=== PATIENT | male | born 1960 | race Caucasian/White ===

== ENCOUNTER 2018-05-02 20:32 | Observation (INO) | payer MEDICARE, OTHER ==
[2018-05-02] MEDS ORDERED: Ondansetron ODT 4 MG TAB ONE (20:38)
[2018-05-02] MEDS ORDERED: Ondansetron HCl/PF 4 MG/2 ML Vial ONE (20:39)
--- NOTE | 2018-05-02 23:38 | PDOC.FPRHP ---
- History of Present Illness Chief Complaint: Seizure History of Present Illness: This is a 58 yo male with a PMH of CAD s/p CABG, migraines, DMII, dercums disease, HTN who presents to the ED with a cc of seizure activity. He reports that he had a seizure. He states that he does not remember what happened and does not remember what he is being treated for. Pt. Was fixated on urinating and became uncooperative. I was able to talk with is regarding his PMH however she is in [place] and was not present for his episode. 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 Pt. reports some tongue pain. - History PMHx:CAD, migrains, DMII, dercum's disease, HTN PSHx: Lung tumors removed in 2015, CABG FHx: Noncontributory Social: Denies T/A/D - Review of Systems General: denies: fever/chills, weight/appetite/sleep changes Eyes: denies: eye pain, vision changes ENT: denies: nasal congestion Respiratory: denies: cough, congestion, shortness of breath Cardiovascular: denies: chest pain, palpitation Gastrointestinal: denies: nausea, vomiting, diarrhea Genitourinary: reports: other (Urgency, reports needing to use the restroom multiple times during his time in the ED) Skin: denies: rashes, lesions Musculoskeletal: denies: pain, tenderness Neurological: reports: syncope, seizure. denies: numbness Psychological: denies: anxiety, depression - Vital signs BP: 140/92 HR: 96 RR: 18 Tmax: 98.4 Pox: 98% on RA Wt: 170.10 - Physical Exam Constitutional: awake, alert and oriented, other (mildly agitated) HEENT: normocephalic and atraumatic, EOMI, other (Dried blood over lips and on tongue, MMM) Neck: FROM, trachea midline Chest: no-tender to palpation Heart: RRR (limited due to body habitus), normal S1/S2, other Lungs: no respiratory distress, other (Good rise of chest, unable to assess due to body habitus) Abdomen: soft, bowel sounds present, no masses/distention Musculoskeletal: normal structure, normal tone Neurological: other (Uncooperative for neuroexam however, no apparent defects) Heme/Lymphatic: no unusual bruising or bleeding, no purpura FMR H&P: Results - Labs Result Diagrams: 05/03/18 04:49 05/03/18 04:49 FMR H&P: A/P - Problem List (1) Seizures Current Visit: Yes Status: Acute Code(s): R56.9 - UNSPECIFIED CONVULSIONS (2) HTN (hypertension) Current Visit: Yes Status: Acute Code(s): I10 - ESSENTIAL (PRIMARY) HYPERTENSION (3) Dercum disease Current Visit: Yes Status: Acute Code(s): E88.2 - LIPOMATOSIS, NOT ELSEWHERE CLASSIFIED (4) CAD (coronary artery disease) Current Visit: Yes Status: Acute Code(s): I25.10 - ATHSCL HEART DISEASE OF [place] CORONARY ARTERY W/O ANG PCTRS (5) Migraine Current Visit: Yes Status: Acute Code(s): G43.909 - MIGRAINE, UNSP, NOT INTRACTABLE, WITHOUT STATUS MIGRAINOSUS - Plan This is a 58 yo male with a PMH of CAD s/p CABG, migraines, DMII, dercums disease, HTN Seizure activity -Admit to obs. We will have PRN ativan for seizure activity. We will also have seizure precautions and Q4 neuro checks. Due to his new onset grand mal seizure activity, we will consult neurology in the morning. CAD s/p CABG -Continue home meds DMII -Home meds when we are reconciled, ACHS accuchecks, SSI moderate HTN -Continue home meds Dercums disease -Aware Migraines -Continue home meds once available. Code: Full Prophylaxis: SCD Family: none at bedised Disposition: home in 1-2 day FMR H&P: Upper Level - Pertinent history 58 yo WM PMH CAD s/p CABG x6 vessel, HTN, HLD, DM2, and remote history of seizures. Presents as transfer from [place] [facility] after seizure event occurred prior to arrival. Became stiff without tonic clonic activity per ER records. Patient states he does not remember event. Per buyer intern report, patient's states he has a history of absence seizures. At time of my exam, the patient reports history of SUT[place] but denies hx of seizures. Per nursing, patient keeps changing his story. He was complaining about needing a glass of ice water and something to eat multiple times during my examination. - Pertinent findings Vitals: BP 140/94, pulse 94, resp 16, 98% on 2L NS, WT 170 kg GEN: obese, NAD ENT: MMM, bruising and laceration to tongue. CV: RRR Pulm: CTA-B, normal effort Neuro: CN2-12 intact, no focal deficits, normal sensation, - Plan Date/Time: 05/02/18 2249 I, Jair Garrido MD, have evaluated this patient and agree with findings/plan as outlined by buyer intern resident. Pertinent changes/additions are listed here. 1. Seizure NOS- Obs, stroke, ativan PRN, will have neuro evaluate him tomorrow. CT negative. Attempting to run prolactin off blood in [place]. Seizure precautions. Will attempt med rec. 2. DM2- home meds, SSI, ACHS checks 3. HTN- med rec, home meds, PRNs available. 4. CAD s/p CABG x6 vessel- med rec, trend trops x3, 5. Obesity: limit sedatives 6. Dercman's disease- outpatient management 7. Diet: HH, CC, 8. PPx: seizure, fall, SCD 9. CODE: Full Dispo- Obs, stroke, <[address] Ferguson. Attending Addendum - Attending Addendum Date/Time: 05/03/18 0704 I personally evaluated the patient and discussed the management with Dr. Zamorano /Hema. I agree with the History, Examination, Assessment and Plan documented above with any addition or exceptions noted below.
[2018-05-02] MEDS ORDERED: Adacel (T-DAP) 0.5 ML VIAL ONE (23:43)
[2018-05-03] MEDS ORDERED: Acetaminophen 325 MG TAB PO PRN (01:55)
[2018-05-03] MEDS ORDERED: Ondansetron ODT 4 MG TAB PO PRN (01:55)
[2018-05-03] MEDS ORDERED: Lorazepam 2 MG/ML VIAL SLOW IVP PRN (01:55)
[2018-05-03] MEDS ORDERED: Ondansetron HCl/PF 4 MG/2 ML Vial IVP PRN (01:55)
[2018-05-03] MEDS ORDERED: hydrALAZINE 20 MG/ML VIAL SLOW IVP PRN (01:55)
[2018-05-03 02:41] VITALS: BMI 48.2
[2018-05-03 05:24] LABS: #Lymphocytes 2.1 thou/uL (1.20-3.40); #Monocytes 1.3 thou/uL (0.11-0.59); #Neutrophils 10.5 thou/uL (1.40-6.50); %Basophils 0.1 % (0.0-1.0); %Eosinophils 0.3 % (0.0-10.0); %Lymphocytes 14.9 % (21.0-51.0); %Monocytes 9.4 % (0.0-10.0); %Neutrophils 75.3 % (42.0-75.0); Hemoglobin 15.4 g/dL (14.0-18.0); Mean Corpuscular HGB CONC 32.7 g/dL (32.0-36.0); Mean Corpuscular Hemoglobin 29.5 pg (27.0-31.0); Mean Corpuscular Volume 90.3 fL (78.0-98.0); Platelet Count 209 thou/uL (130-400); RBC Distribution Width 13.1 % (11.5-14.5); Red Blood Cell (RBC) Count 5.23 mill/uL (4.70-6.10)
[2018-05-03 05:37] LABS: ALT (SGPT) 22 U/L (8-55); AST (SGOT) 32 U/L (5-34); Albumin 3.9 g/dL (3.5-5.0); Alkaline Phosphatase 73 U/L (40-150); Anion Gap 12 mmol/L (10-20); BUN (Urea Nitrogen) 19 mg/dL (8.4-25.7); Bilirubin, Total 0.6 mg/dL (0.2-1.2); Calc. Creatinine Clearance 253 mL/min (70-130); Carbon Dioxide 22 mmol/L (22-29); Chloride 109 mmol/L (98-107); Estimated GFR-MDRD Greater than 90; Globulin 2.7 g/dL (2.4-3.5); Glucose 183 mg/dL (70-105); Potassium 3.5 mmol/L (3.5-5.1); Protein, Total 6.6 g/dL (6.0-8.3); Sodium 139 mmol/L (136-145)
[2018-05-03 06:17] LABS: Troponin I 0.082 ng/mL (< 0.028)
[2018-05-03] MEDS ORDERED: Dextrose 50% Abboject 50 ML SYRINGE SLOW IVP PRN (08:01)
[2018-05-03] MEDS ORDERED: Dextrose 5% in Water 1,000 ML IV PRN (08:01)
--- NOTE | 2018-05-03 08:05 | PDOC.FM ---
- Subjective Subjective: This morning patient is oriented to self and location but not time. He complains of sinus congestion. He denies pain or weakness. States he has been ambulating without difficulty. - Objective Vital Signs & Weight: Vital Signs (12 hours) Temp Pulse Resp BP Pulse Ox 05/03/18 07:37 98.9 F 85 20 135/63 93 L 05/03/18 04:00 99.3 F 86 18 161/74 H 98 05/03/18 00:50 98.3 F 92 18 187/95 H 95 Weight Weight 166.015 kg I&O: 05/02/18 05/03/18 05/04/18 06:59 06:59 06:59 Intake Total 240 Output Total 450 Balance -210 Result Diagrams: 05/03/18 04:49 05/03/18 04:49 <Jordan Rivera - Last Filed: 05/03/18 08:03> - Objective Vital Signs & Weight: Vital Signs (12 hours) Temp Pulse Resp BP Pulse Ox 05/03/18 07:37 98.9 F 85 20 135/63 93 L 05/03/18 04:00 99.3 F 86 18 161/74 H 98 05/03/18 00:50 98.3 F 92 18 187/95 H 95 Weight Weight 166.015 kg I&O: 05/02/18 05/03/18 05/04/18 06:59 06:59 06:59 Intake Total 240 240 Output Total 450 Balance -210 240 Result Diagrams: 05/03/18 04:49 05/03/18 04:49 <Benny Ferguson - Last Filed: 05/03/18 10:36> Phys Exam - Physical Examination Constitutional: NAD HEENT: PERRLA, moist MMs Neck: no nodes, full ROM Respiratory: no wheezing obesity hypoventilation syndrome Cardiovascular: RRR, no significant murmur Gastrointestinal: soft, non-tender, no distention, positive bowel sounds Musculoskeletal: no edema, pulses present mild redness on legs bilaterally, likely heat rash, will monitor no swelling Neurological: non-focal, moves all 4 limbs Skin: cap refill <2 seconds <Jordan Rivera - Last Filed: 05/03/18 08:03> Dx/Plan (1) CAD (coronary artery disease) Code(s): I25.10 - ATHSCL HEART DISEASE OF [place] CORONARY ARTERY W/O ANG PCTRS Status: Acute (2) Dercum disease Code(s): E88.2 - LIPOMATOSIS, NOT ELSEWHERE CLASSIFIED Status: Acute (3) HTN (hypertension) Code(s): I10 - ESSENTIAL (PRIMARY) HYPERTENSION Status: Acute (4) Migraine Code(s): G43.909 - MIGRAINE, UNSP, NOT INTRACTABLE, WITHOUT STATUS MIGRAINOSUS Status: Acute (5) Seizures Code(s): R56.9 - UNSPECIFIED CONVULSIONS Status: Acute - Plan Plan: # Seizure, new onset - ativan PRN - neuro consult tomorrow as there is none availabe to today - CT head negative - prolactin pending # DM2 - SSI, ACHS checks # HTN - awaiting home meds - PRN Hydralazine # CAD s/p CABG - trop negative # Obesity hypoventilation syndrome - cautious w/ resp depressants # Dercum's disease - outpatient f/u PPx: seizure, SCD Code: full Dispo: pending neuro consult tomorrow <Jordan Rivera - Last Filed: 05/03/18 08:03> (1) Seizures Code(s): R56.9 - UNSPECIFIED CONVULSIONS Status: Acute (2) HTN (hypertension) Code(s): I10 - ESSENTIAL (PRIMARY) HYPERTENSION Status: Acute (3) Dercum disease Code(s): E88.2 - LIPOMATOSIS, NOT ELSEWHERE CLASSIFIED Status: Acute (4) CAD (coronary artery disease) Code(s): I25.10 - ATHSCL HEART DISEASE OF [place] CORONARY ARTERY W/O ANG PCTRS Status: Acute (5) Migraine Code(s): G43.909 - MIGRAINE, UNSP, NOT INTRACTABLE, WITHOUT STATUS MIGRAINOSUS Status: Acute <Benny Ferguson - Last Filed: 05/03/18 10:36> Attending Addendum - Attending Addendum Date/Time: 05/03/18 1036 I personally evaluated the patient and discussed the management with Dr. Rivera. I agree with the History, Examination, Assessment and Plan documented above with any addition or exceptions noted below. Will await neuro consult. Load with Terrie if patient has recurrence. Obtain EEG. <Benny Ferguson - Last Filed: 05/03/18 10:36>
[2018-05-03] MEDS ORDERED: Oxymetazoline HCl 0.05% (30 ML BOT) NS SCH (09:00)
[2018-05-03] MEDS: Oxymetazoline HCl 0.05% ( 15 ML ) NASAL SCH ×4 (09:49→21:39)
[2018-05-03] MEDS: HumaLOG 300 UNITS/3 ML VIAL SC PRN ×3 (09:49→22:45)
--- NOTE | 2018-05-03 10:08 | PDOC.EVN ---
Event Note - Event Note Event Note: Ordered Brain MRI but was informed patient is too large for MRI at this location
[2018-05-03] MEDS: levETIRAcetam 500 MG TAB PO SCH (21:39)
[2018-05-04] MEDS ORDERED: Labetalol HCl 100 MG/20 ML VIAL SLOW IVP PRN (00:24)
[2018-05-04] MEDS: Oxymetazoline HCl 0.05% ( 15 ML ) NASAL SCH ×5 (02:07→18:22)
--- NOTE | 2018-05-04 07:45 | PDOC.FM ---
- Subjective Subjective: This morning patient states he his feeling well. Denies seizure activity or weakness overnight. No N/V/D. States he feels ready to go home. - Objective Vital Signs & Weight: Vital Signs (12 hours) Temp Pulse Resp BP BP Pulse Ox 05/04/18 03:40 99.4 F 75 18 126/80 93 L 05/04/18 01:30 135/78 05/04/18 00:33 72 184/88 H 05/03/18 23:43 99.6 F 72 18 184/88 H 92 L 05/03/18 21:38 78 188/89 H 05/03/18 20:00 98.6 F 78 20 184/102 H 94 L Weight Weight 166.015 kg I&O: 05/03/18 05/04/18 05/05/18 06:59 06:59 06:59 Intake Total 240 480 Output Total 450 Balance -210 480 Result Diagrams: 05/03/18 04:49 05/03/18 04:49 Phys Exam - Physical Examination Constitutional: NAD HEENT: PERRLA, moist MMs Neck: no nodes, full ROM Respiratory: no wheezing, clear to auscultation bilateral Cardiovascular: RRR, no significant murmur Gastrointestinal: soft, non-tender, no distention, positive bowel sounds Musculoskeletal: no edema, pulses present Neurological: non-focal, moves all 4 limbs Psychiatric: normal affect, A&O x 3 Skin: no rash, cap refill <2 seconds Dx/Plan (1) CAD (coronary artery disease) Code(s): I25.10 - ATHSCL HEART DISEASE OF [place] CORONARY ARTERY W/O ANG PCTRS Status: Acute (2) Dercum disease Code(s): E88.2 - LIPOMATOSIS, NOT ELSEWHERE CLASSIFIED Status: Acute (3) HTN (hypertension) Code(s): I10 - ESSENTIAL (PRIMARY) HYPERTENSION Status: Acute (4) Migraine Code(s): G43.909 - MIGRAINE, UNSP, NOT INTRACTABLE, WITHOUT STATUS MIGRAINOSUS Status: Acute (5) Seizures Code(s): R56.9 - UNSPECIFIED CONVULSIONS Status: Acute - Plan Plan: # Seizure, new onset - ativan PRN - neuro consult today, no on-call neuro yesterday - CT head negative, patient too big for MRI - prolactin pending from outside hospital - EEG done yesterday # DM2 - SSI, ACHS checks # HTN - awaiting home meds - PRN Hydralazine # CAD s/p CABG - trop negative # Obesity hypoventilation syndrome - cautious w/ resp depressants - daughter to bring CPAP # Dercum's disease - outpatient f/u PPx: seizure, SCD Code: full Dispo: likely d/c today pending neuro recs
--- NOTE | 2018-05-04 07:47 | PDOC.EVN ---
Attending Addendum - Attending Addendum Date/Time: 05/04/18 5667 I personally evaluated the patient and discussed the management with Dr. Rivera. I agree with the History, Examination, Assessment and Plan documented in his progress note with any addition or exceptions noted below. Patient without complaints this morning, resting comfortably. No recurrent seizure activity since admission. He cannot undergo MRI here due to weight and will have to defer that workup to outpatient setting. He has been started on Keppra. Awaiting neurology consult as it was not available yesterday and no neurology communications tower technician. Once we have received their recommendations, patient can likely be discharged for further outpatient follow up. EEG results pending.
[2018-05-04] MEDS ORDERED: Aspirin 81 mg Enteric Coated Tablet PO SCH (09:00)
[2018-05-04] MEDS ORDERED: Lisinopril 10 MG TAB PO SCH (09:00)
[2018-05-04] MEDS ORDERED: Insulin Glargine 32 UNITS in Pre-Filled Syringe 1 EACH SC SCH (09:00)
--- NOTE | 2018-05-04 09:09 | EEG ---
Referring Physician: Nancy MACARIO EEG # [id number] TEST TYPE: ROUTINE PORTABLE INPATIENT REPORT: AN EEG USING THE INTERNATIONAL TEN-TWENTY SYSTEM OF ELECTRODE PLACEMENT WAS PERFORMED. The waking background is a 9 hertz Alpha frequency. The patient remained awake. Photic stimulation was unremarkable. No epileptiform features were present. IMPRESSION: NORMAL AWAKE EEG. Senior Financial Consultant: JOHN Escape Wheel Tooth Cutter: EEG.[email or web address] THORNE
[2018-05-04] MEDS: levETIRAcetam 500 MG TAB PO SCH (09:44)
[2018-05-04] MEDS: metFORMIN 500 MG TAB PO SCH ×2 (09:45→17:44)
[2018-05-04] MEDS: HumaLOG 300 UNITS/3 ML VIAL SC PRN ×2 (12:54→17:46)
[2018-05-04 16:13] VITALS: TEMP 97.8
[2018-05-04 18:25] VITALS: BP 176/92
[2018-05-04] MEDS ORDERED: Gabapentin 300 MG CAP PO SCH (21:00)
[2018-05-04] MEDS ORDERED: Atorvastatin Calcium 20 MG TAB PO SCH (21:00)
--- NOTE | 2018-05-04 23:54 | CON ---
DATE OF CONSULTATION: 05/04/2018 NEUROLOGY CONSULTATION CONSULTING PHYSICIAN: [facility]. IMPRESSION: 1. New onset seizures. 2. Morbid obesity. PLAN: 1. Keppra 500 mg twice a day. 2. Outpatient open MRI of the brain. HISTORY: Mr. Trujillo is a 58-year-old man with a past history of diabetes, hypertension, CABG, Joy's p alsy and some intermittent headaches who apparently had a witnessed seizure. He came to the emergenc y room on 05/02/2018. He has not had any further seizure activities. EEG was unremarkable. All his lab work was also normal. Still complaining of soreness to his tongue from his tongue trauma. He d enies any past history of seizures. There was some confusion as to whether he has had EEGs in the [facility]. He said he has had a CT scan of the brain in the past. It did not show any abnormalities. He i s from [place] and do not have any other records. His daughter lives in [place] and he will be stay ing in town to all early May. PAST MEDICAL HISTORY: As listed above. ALLERGIES: None. SOCIAL HISTORY: . No illicit drug use. FAMILY HISTORY: Noncontributory. REVIEW OF SYSTEMS: Otherwise, negative. ALLERGIES: None. PHYSICAL EXAMINATION: GENERAL: He is overweight, middle age man in no distress. VITAL SIGNS: Blood pressure 140/92, pulse 96, respirations 18, temperature 98.4. HEENT: Normocephalic and atraumatic. Pupils are equal and reactive. Conjunctivae clear. NECK: Supple. EXTREMITIES: There is some peripheral edema. No cyanosis present. NEUROLOGIC: He is alert and cooperative. He follows commands appropriately. His exam is nonfocal. No abnormal movements were seen. IMAGING DATA: EKG shows sinus rhythm. SUMMARY: A 58-year-old man with some vascular risk factors and obesity who presents with new onset s eizure. Given the [place], I will go ahead and start him on an anti convulsant and finish his workup as an outpatient. I will be happy to take care of him through the ffice after discharge.
--- NOTE | 2018-05-06 01:41 | DIS-2 ---
DATE OF ADMISSION: 05/02/2018 DATE OF DISCHARGE: 05/04/2018 RESIDENT: Jordan Rivera M.D. ADMITTING ATTENDING: Benny Ferguson M.D. DISCHARGE ATTENDING: Benny Ferguson M.D. PROCEDURES: EEG shows no seizure activity. CONSULTS: Dr. Magdi Rodgers, Neurology. PRIMARY DIAGNOSIS: New onset seizures. SECONDARY DIAGNOSES: Diabetes type 2, hypertension, coronary artery disease with history of coronary artery bypass grafting, obesity hypoventilation syndrome, Dercum's disease. DISCHARGE MEDICATIONS: Keppra 500 mg oral twice daily, metformin 1000 mg twice daily, Benadryl 50 mg daily, lisinopril 10 mg twice daily, Lantus 32 units daily, gabapentin 300 mg at bedtime, atorvastat in 20 mg at bedtime, aspirin 81 mg, ranitidine, melatonin, Jardiance one tablet every morning. HISTORY OF PRESENT ILLNESS AND HOSPITAL COURSE: This is a 58-year-old male who presented to the ED c omplaining of seizure activity. He reported that he had a seizure. He stated that he did not rememb er what happened and did not remember why he was in the ER. The patient's was spoken to on the phone who relates a story from his daughter. 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 The patient had an EEG, which was read as waking background at 9 Hz alpha frequency. Normal awake EE G. The patient had no seizure activity throughout the hospital stay. The patient was able to tolera te p.o. solids and liquids without any difficulty throughout the hospital stay. Upon discharge, the patient was able to ambulate up and down the entire hallway with only some shortness of breath. He w as not weak at that time. The patient was started on Keppra 500 mg oral twice daily. Neurology leonides mmended an outpatient brain MRI to be completed as the patient has vascular risk factors. The patien t was too big to fit in the MRI scanner at this facility, so he will need the procedure done outpatie nt. The patient's labs were unremarkable during the stay. DISPOSITION: Stable. DISCHARGE INSTRUCTIONS: 1. Location: Home. 2. Diet: Regular. 3. Activity: As tolerated. 4. Followup: Follow up PCP within 1 week, Dr. Magdi Rodgers in 1-2 weeks. The patient will still ne ed outpatient brain MRI through Dr. Magdi Rodgers's office.
== END 2018-05-04 19:50 | disposition home or self-care (01) ==
LOC: ERS 20:32 → 2SE 22:51
PROVIDERS: ADMIT Student in an Organized Health Care Education/Training Program; ATTEND Student in an Organized Health Care Education/Training Program
DX: R56.9 Unspecified convulsions (principal); I25.10 Atherosclerotic heart disease of native coronary artery without angina pectoris; G43.909 Migraine, unspecified, not intractable, without status migrainosus; E88.2 Lipomatosis, not elsewhere classified; I10 Essential (primary) hypertension; E11.9 Type 2 diabetes mellitus without complications; Z68.42 Body mass index [BMI] 45.0-49.9, adult; Z79.4 Long term (current) use of insulin; Z79.82 Long term (current) use of aspirin; Z79.899 Other long term (current) drug therapy; Z95.1 Presence of aortocoronary bypass graft
CPT/HCPCS: 80053; 82962 ×2; 83605; 84484; 85025; 90471; 90715; 93005; 95816; 95819; 96361; 96374; 96376; 99285; G0378 ×2; 36415; 36416; J0360; J2405; Q0162

== ENCOUNTER 2023-05-07 01:31 | Inpatient (IN) | payer MEDICARE ==
[2023-05-07 03:12] LABS: #Monocytes 0.7 thou/uL (0.11-0.59); %Basophils 0.2 % (0.0-1.0); %Monocytes 4.4 % (0.0-10.0); %Neutrophils 90.9 % (42.0-75.0); Hematocrit 41.3 % (42.0-52.0); Hemoglobin 13.6 g/dL (14.0-18.0); Mean Corpuscular HGB CONC 32.9 g/dL (32.0-36.0); Mean Corpuscular Hemoglobin 29.1 pg (27.0-31.0); Mean Corpuscular Volume 88.2 fl (78.0-98.0); Mean Platelet Volume 10.4 fL (7.4-10.4); Platelet Count 167 10x3/uL (130-400); RBC Distribution Width 14.6 % (11.5-14.5); Red Blood Cell (RBC) Count 4.68 mill/uL (4.70-6.10); White Blood Cell (WBC) Count 16.5 10x3/uL (4.8-10.8)
[2023-05-07 03:26] LABS: INR-International Normal Ratio 1.2; PTT 34.1 sec (22.9-36.1); Prothrombin Time 15.6 sec (12.0-14.7)
[2023-05-07 03:34] LABS: Acetaminophen Less than 10 mcg/mL (10.0-30.0); Alcohol Less than 10.0 mg/dL (Less than 10); Lipase 26 U/L (8-78); Salicylate Less than 8.0 mg/dL (15.0-30.0)
[2023-05-07 03:36] LABS: ALT (SGPT) 19 U/L (8-55); AST (SGOT) 15 U/L (5-34); Albumin 3.8 g/dL (3.4-4.8); Alkaline Phosphatase 70 U/L (40-110); Anion Gap 15 mmol/L (10-20); BUN (Urea Nitrogen) 17 mg/dL (8.4-25.7); Bilirubin, Total 0.8 mg/dL (0.2-1.2); Calc. Creatinine Clearance 0 mL/min (70-130); Calcium 9.4 mg/dL (7.8-10.44); Carbon Dioxide 24 mmol/L (23-31); Chloride 103 mmol/L (98-107); Estimated GFR 68; Globulin 2.3 g/dL (2.4-3.5); Glucose 309 mg/dL (80-115); Potassium 4.2 mmol/L (3.5-5.1); Protein, Total 6.1 g/dL (5.8-8.1); Sodium 138 mmol/L (136-145)
[2023-05-07 03:38] LABS: Troponin I 0.033 ng/mL (< 0.028)
[2023-05-07] MEDS ORDERED: Cefepime 2 GM VIAL ONE (06:22)
[2023-05-07] MEDS ORDERED: Aspirin Chewable 81 MG TAB ONE (06:22)
[2023-05-07] MEDS ORDERED: Furosemide 40 MG/4 ML VIAL ONE (07:27)
[2023-05-07] MEDS ORDERED: Acetaminophen 325 MG TAB PO PRN (07:28)
[2023-05-07] MEDS ORDERED: Dextrose 50% Abboject 50 ML SYRINGE SLOW IVP PRN (07:31)
[2023-05-07] MEDS ORDERED: Dextrose 5% in Water 1,000 ML IV PRN (07:31)
[2023-05-07] MEDS ORDERED: Glucagon 1 MG/ML KIT IM PRN (07:31)
[2023-05-07] MEDS ORDERED: Ipratropium/Albuterol 3 ML NEB NEB PRN (07:33)
[2023-05-07] MEDS ORDERED: SODIUM CHLORIDE IVPB SCH (08:00)
[2023-05-07] MEDS ORDERED: Vancomycin HCl 2.5 GM, Admixture Fee 1 EACH in Sodium Chloride 0.9% 500 ML IVPB SCH (08:00)
[2023-05-07] MEDS ORDERED: VANCOMYCIN HCL IVPB SCH (08:00)
[2023-05-07] MEDS ORDERED: ADMIXTURE FEE IVPB SCH (08:00)
[2023-05-07 08:25] LABS: Actual Bicarbonate (HCO3a) 23.5 mEq/L (22-28); Base Excess (BEa) -0.1 mEq/L (-2.0 to +3.0); CO2 Tension 35.7 mmHg (35.0-45.0); Calcium, Ionized (arterial) 1.21 mmol/L (1.12-1.30); Carboxyhemoglobin (COHb) 0.9 gm% (0.0-3.0); Hematocrit-ABG 45 % (42.0-52.0); Hemoglobin (Hb) 15.3 g/dL (14.0-18.0); Potassium - ABG Lab 3.48 mmol/L (3.70-5.30); pH, Arterial 7.437 (7.35-7.45)
[2023-05-07 08:29] LABS: Analyzer IN Cardio ER; O2 Tension (PaO2), arterial 55.9 mmHg (> 80.0)
[2023-05-07] MEDS ORDERED: Cefepime 1 GM in Sodium Chloride 0.9% 100 ML IVPB SCH (09:00)
[2023-05-07] MEDS ORDERED: Vancomycin 1 GM in Premix Bag 1 BAG IVPB SCH (09:00)
[2023-05-07] MEDS ORDERED: Iopamidol 370 76% 100 ML VIAL ONE (09:08)
[2023-05-07] MEDS ORDERED: Albumin 25% 25 GM/100 ML BOT IVPB SCH (09:45)
[2023-05-07] MEDS ORDERED: Electrolyte Replacement Protocol 1 EACH FS PRN (10:15)
[2023-05-07] MEDS ORDERED: Lorazepam 2 MG/ML VIAL SLOW IVP PRN (10:16)
[2023-05-07 10:27] LABS: Troponin I 0.034 ng/mL (< 0.028)
[2023-05-07 11:29] LABS: Lactic Acid 2.7 mmol/L (0.5-2.2)
[2023-05-07] MEDS ORDERED: levETIRAcetam 500 MG/5 ML VIAL SLOW IVP SCH ×2 (12:00→21:00)
[2023-05-07] MEDS ORDERED: methylPREDNISolone Sod Succ 40 MG VIAL IVP SCH (12:00)
[2023-05-07 12:23] LABS: Amphetamine Not Detected (NotDetected); Barbiturates Screen Not Detected (NotDetected); Benzodiazepine Screen Not Detected (NotDetected); Cocaine Metabolite Screen Not Detected (NotDetected); Methadone Not Detected (NotDetected); Methamphetamine Not Detected (NotDetected); Opiate Screen Not Detected (NotDetected); Oxycodone Screen Not Detected (NotDetected); Phencyclidine (PCP) Not Detected (NotDetected); THC/Cannabinoid Screen Not Detected (NotDetected); Tricyclic Screen Not Detected (NotDetected)
[2023-05-07] MEDS: Famotidine/PF 20 mg/2ml Vial SLOW IVP SCH ×2 (12:23→19:40)
[2023-05-07] MEDS: Ipratropium/Albuterol 3 ML NEB NEB SCH ×2 (12:46→18:44)
[2023-05-07 13:57] VITALS: BMI 53.2
[2023-05-07 13:57] LABS: Troponin I 0.031 ng/mL (< 0.028)
[2023-05-07] MEDS ORDERED: Furosemide 40 MG/4 ML VIAL SLOW IVP SCH (14:00)
[2023-05-07] MEDS: Cefepime 2 GM in Sodium Chloride 0.9% 100 ML IVPB SCH ×2 (14:22→21:07)
[2023-05-07] MEDS: HumaLOG 300 UNITS/3 ML VIAL SC PRN (16:42)
[2023-05-07 18:03] VITALS: BP 158/70
[2023-05-07] MEDS: Mometasone/Formoterol 200/5 60 PUFF INH SCH (18:46)
[2023-05-07] MEDS: levETIRAcetam 500 MG TAB PO SCH (19:40)
[2023-05-07] MEDS: Lacosamide 100 MG in Sodium Chloride 0.9% 50 ML IVPB SCH (21:03)
[2023-05-08] MEDS: Ipratropium/Albuterol 3 ML NEB NEB SCH ×3 (00:49→12:08)
[2023-05-08 04:06] LABS: #Basophils 0.1 thou/uL (0.0-0.2); #Eosinphils 0.2 thou/uL (0.0-0.7); #Neutrophils 7.3 thou/uL (1.40-6.50); %Basophils 0.5 % (0.0-1.0); %Eosinophils 1.5 % (0.0-10.0); %Lymphocytes 14.7 % (21.0-51.0); %Monocytes 9.6 % (0.0-10.0); %Neutrophils 73.2 % (42.0-75.0); Hematocrit 36.9 % (42.0-52.0); Hemoglobin 12.1 g/dL (14.0-18.0); Mean Corpuscular HGB CONC 32.8 g/dL (32.0-36.0); Mean Corpuscular Hemoglobin 29.1 pg (27.0-31.0); Mean Corpuscular Volume 88.7 fl (78.0-98.0); Mean Platelet Volume 10.7 fL (7.4-10.4); Platelet Count 141 10x3/uL (130-400); RBC Distribution Width 15.1 % (11.5-14.5); Red Blood Cell (RBC) Count 4.16 mill/uL (4.70-6.10); White Blood Cell (WBC) Count 9.9 10x3/uL (4.8-10.8)
[2023-05-08 04:29] LABS: Anion Gap 12 mmol/L (10-20); BUN (Urea Nitrogen) 14 mg/dL (8.4-25.7); Calc. Creatinine Clearance 244 mL/min (70-130); Calcium 8.7 mg/dL (7.8-10.44); Carbon Dioxide 24 mmol/L (23-31); Chloride 106 mmol/L (98-107); Estimated GFR 99; Glucose 176 mg/dL (80-115); Potassium 3.5 mmol/L (3.5-5.1); Sodium 138 mmol/L (136-145)
[2023-05-08 04:43] VITALS: TEMP 98.9
[2023-05-08 04:50] LABS: Hemoglobin A1c 7.2 % (4.0-6.0)
[2023-05-08] MEDS: HumaLOG 300 UNITS/3 ML VIAL SC PRN ×2 (06:11→11:30)
[2023-05-08] MEDS: Mometasone/Formoterol 200/5 60 PUFF INH SCH (06:32)
[2023-05-08] MEDS: Cefepime 2 GM in Sodium Chloride 0.9% 100 ML IVPB SCH (07:41)
[2023-05-08] MEDS ORDERED: Potassium Chloride 20 MEQ TAB PO SCH (08:00)
[2023-05-08 08:17] LABS: Vancomycin, Random 4.4 ug/mL (See Comment)
[2023-05-08] MEDS: levETIRAcetam 500 MG TAB PO SCH (09:00)
[2023-05-08] MEDS: Famotidine/PF 20 mg/2ml Vial SLOW IVP SCH (09:00)
[2023-05-08] MEDS: Lacosamide 100 MG in Sodium Chloride 0.9% 50 ML IVPB SCH (09:00)
[2023-05-08] MEDS ORDERED: VANCOMYCIN 2 GRAM/500 ML BAG 2 GM in Premix Bag 1 BAG IVPB SCH ×2 (10:00→20:00)
[2023-05-08] MEDS ORDERED: Bisacodyl 5 MG TAB PO PRN (10:10)
[2023-05-08] MEDS ORDERED: Cefdinir 300 MG CAP PO SCH (21:00)
[2023-05-08] MEDS ORDERED: Apixaban 5 MG TAB PO SCH (21:00)
[2023-05-09] MEDS ORDERED: Ipratropium Bromide 0.06% Nasal Inhaler 15ml EA NARE SCH ×2 (09:00)
[2023-05-09] MEDS ORDERED: Lisinopril 5 MG TAB PO SCH (09:00)
[2023-05-09] MEDS ORDERED: Ascorbic Acid 500 mg Chewable Tablet PO SCH (09:00)
[2023-05-09] MEDS ORDERED: Finasteride 5 MG TAB PO SCH (09:00)
== END 2023-05-08 12:17 | disposition home or self-care (01) | DRG 101 ==
LOC: ERS 01:31 → IMCU/EMU 07:28
PROVIDERS: ADMIT Family Medicine; ATTEND Student in an Organized Health Care Education/Training Program
PROC: 4A033R1 Measurement of Arterial Saturation, Peripheral, Percutaneous Approach (ICD-10-PCS; 2023-05-07)
PROC: 4A10X4Z Monitoring of Central Nervous Electrical Activity, External Approach (ICD-10-PCS; 2023-05-07)
PROC: 5A09357 Assistance with Respiratory Ventilation, Less than 24 Consecutive Hours, Continuous Positive Airway Pressure (ICD-10-PCS; principal; 2023-05-08)
PROC: 4A10X4Z Monitoring of Central Nervous Electrical Activity, External Approach (ICD-10-PCS; 2023-05-08)
DX: G40.909 Epilepsy, unspecified, not intractable, without status epilepticus (principal); J44.1 Chronic obstructive pulmonary disease with (acute) exacerbation; Z68.43 Body mass index [BMI] 50.0-59.9, adult; L03.116 Cellulitis of left lower limb; E87.20 Acidosis, unspecified; I42.9 Cardiomyopathy, unspecified; I25.10 Atherosclerotic heart disease of native coronary artery without angina pectoris; I11.0 Hypertensive heart disease with heart failure; I50.9 Heart failure, unspecified; I87.2 Venous insufficiency (chronic) (peripheral); E11.9 Type 2 diabetes mellitus without complications; G89.29 Other chronic pain; E66.01 Morbid (severe) obesity due to excess calories; G47.33 Obstructive sleep apnea (adult) (pediatric); Z79.82 Long term (current) use of aspirin; Z79.4 Long term (current) use of insulin; Z79.84 Long term (current) use of oral hypoglycemic drugs; Z79.51 Long term (current) use of inhaled steroids; Z95.1 Presence of aortocoronary bypass graft; Z79.899 Other long term (current) drug therapy; Z86.718 Personal history of other venous thrombosis and embolism; Z79.01 Long term (current) use of anticoagulants; Z86.711 Personal history of pulmonary embolism
CPT/HCPCS: 36415; 36416; 70450; 71045; 72125; 74177; 80048; 80053; 80202; 80306; 80307; 82805; 83036; 83605; 83690; 83880; 84145; 84443; 84484; 85025; 85610; 85730; 86140; 87040; 93005; 93306; 94640; 94660; 94664; 95711; 95816; 95819; 95957; 96361; 96365; 96367; 96375; C9254; J0692; J1650; J1815; J1940; J1953; J3370; J3490; J7030; J7620; Q9967; S0028